=== PATIENT | female | born 1965 | race Caucasian/White ===

== ENCOUNTER → 2024-03-22 06:44 | Outpatient (REF) | payer BC, SELFPAY | LOC: HWWDC 06:44 | PROVIDERS: ATTENDING PHYSICIAN Obstetrics & Gynecology Gynecology; FAMILY PHYSICIAN Internal Medicine | DX: Z12.31 Encounter for screening mammogram for malignant neoplasm of breast (principal) | CPT/HCPCS: 77063; 77067 ==

== ENCOUNTER → 2024-05-31 07:35 | Outpatient (REF) | payer BC, SELFPAY | LOC: HWRAD 07:35 | PROVIDERS: ATTENDING PHYSICIAN Otolaryngology; FAMILY PHYSICIAN Internal Medicine | DX: J34.2 Deviated nasal septum (principal) | CPT/HCPCS: 70486 ==

== ENCOUNTER → 2025-04-16 07:28 | Outpatient (REF) | payer BC, SELFPAY | LOC: HWWDC 07:28 | PROVIDERS: ATTENDING PHYSICIAN Obstetrics & Gynecology Gynecology; FAMILY PHYSICIAN Internal Medicine | DX: Z12.31 Encounter for screening mammogram for malignant neoplasm of breast (principal) | CPT/HCPCS: 77063; 77067 ==